=== PATIENT | female | born 1990 | race Hispanic/Latino ===

== ENCOUNTER 2017-06-27 01:01 | Emergency (ER) | payer MEDICARE, MEDICAID ==
[~2017-06-27] VITALS: Ht 165.1 cm; Wt 69.7 kg
[~2017-06-27 01:01] MED LIST: ACYC400T2 PO; Ascorbic Acid PO; DOCU-41 PO; FERR-74 PO; IBUP-1827 PO; LEVO175T5 PO; PREN-12 PO
[2017-06-27 01:13] VITALS: BP 122/73; RESP 16; O2SAT 98
--- NOTE | 2017-06-27 03:38 | ED.REPORT ---
HPI-Sore Throat ONLY HPI/PE done Jun 27, 2017 ED Provider: Ketan Garcia MD The pt is a 26 y/o female with no pertinent hx who presents to the ED complaining of sore throat, onset yesterday. Associated sx include fever. She denies any other sx at this time. Nursing Notes Stated Complaint: FEVER Chief Complaint: ENT & Mouth Nursing Notes Reviewed: Yes Allergies: Coded Allergies: No Known Allergies (Unverified , 09/10/16) Scheduled ([Ascorbic Acid]) 500 MG TABLET 500 MG PO BIDWM Acyclovir (Acyclovir) 400 Mg Tablet 400 MG PO DAILY Docusate Sodium (Colace) 100 Mg Capsule 100 MG PO BID Ferrous Sulfate (Feosol) 325 Mg Tablet 325 MG PO BIDWM Levothyroxine (Levothyroxine) 175 Mcg Tablet 175 MCG PO DAILY Prednisone (PredniSONE) 20 Mg Tablet 20 MG PO TID Scheduled PRN Ibuprofen (Ibuprofen) 600 Mg Tablet 600 MG PO Q6H PRN PRN For Mild Pain Miscellaneous Medications Vit W-Ca,Fe,FA(<1 mg) ( Formula) 1 Each Tablet 1 EACH PO General Time Seen by MD: 03:36 Chief Complaint Sore throat Hx Obtained From: Patient Arrived By: Walk-in Onset Occurred: Yesterday Symptom Duration: Since onset Location: : Tonsil left: Tonsil right Quality: Painful Severity: Current: Moderate Severity: Maximum: Moderate Recent Healthcare: No recent doctor visit Past Medical History Past Medical History none reported Past Surgical History none reported Smoking History Unknown if Ever Smoker Ambulatory Status Independent Review of Systems Constitutional: Reports: Fever Ears / Nose / Throat: Reports: Sore throat Complete sys rev & neg: except as marked. Physical Exam Initial Vital Signs Vital Signs (First) Date Time Temp Pulse Resp B/P Pulse Ox O2 Delivery O2 Flow Rate FiO2 06/27/17 01:13 37.6 110 16 122/73 98 Room Air Initial VS: Reviewed, Vital signs normal Head / Eyes: Atraumatic, Normocephalic Respiratory: Breath sounds normal, Clear to auscultation, No respiratory distress Cardiovascular: Regular rate & rhythm, Heart sounds normal, Intact distal pulses Abdomen / GI: Soft, Non-tender, No guarding, No rebound, No distention Extremities: Vascular intact, Neuro intact, No swelling, No tenderness Skin: Warm, Dry, No cyanosis Neurologic: Alert, Oriented, Nonfocal General/Constitutional: Awake, Alert, Cooperative Distress / Hydration: Positive: Distress mild ENT: Atraumatic, Tympanic membs NL, No facial swelling Pharynx / Tonsils / Uvula: Positive: Tonsillar swelling L, Tonsillar swelling R 3+ kissing tonsils with exudate. No peritonsillar abscess. Neck: Atraumatic, Supple, Full range of motion, No swelling Interpretation & Diagnostics Lab Results Interpretation Lab Results Interpretation: Strep test negative Re-Eval/Medical Decision Med Decision/Clinical Course Strep negative tonsillitis without evidence of vasquez-tonsillar cellulitis or abscess. Re-Evaluation/Progress : Time of Eval: 03:44 Re-Evaluation/Progress Note: Rechecked pt. Discussed diagnosis and plan to discharge. Pt understands and agrees with the plan. F/U instruction and RTER warning given. All questions addressed. Counseled Regarding: Diagnosis, Need for follow-up, When/why to return to ED Discharge & Departure Primary Impression: Tonsillitis Disposition: Home Discharge Condition All VS Reviewed: Yes Condition: Stable Patient Instructions: Tonsillitis (ED) Additional Instructions: Strep negative, but this is an infectious tonsillitis. Amoxicillin/clavulanate 875, one pill twice a day for 10 days #20. Penicillin 20 mg by mouth 3 times a day for 5 days, #15. Referrals: Sascha Smith MD (PCP) Scribe Attestation Portions of this note were transcribed by Jose Foreman. I,, personally performed the history,physical exam and medical decision-making;I reviewed and confirmed the accuracy of the information in the transcribed note. Signed by Tiffanie Raphael. 06/27/17 copies to: Sascha Smith MD, Howard L MD Jun 27, 2017 03:38 Jose Foreman Jun 27, 2017 04:05
[2017-06-27] MEDS ORDERED: predniSONE 20 mg Tablet PO ONE (03:55)
[2017-06-27] MEDS ORDERED: PRE20 PO (04:02)
[2017-06-27] MEDS ORDERED: _Amoxicillin-Clavulanate 875-125 mg Tablet PO SCH (08:30)
== END 2017-06-27 04:39 | disposition home or self-care (01) ==
LOC: SED 01:01
DX: J03.90 Acute tonsillitis, unspecified (principal); R50.9 Fever, unspecified